=== PATIENT | female | born 1980 | race Caucasian/White ===

== ENCOUNTER → 2024-03-18 11:23 | Outpatient (REF) | payer OTHER, BC, SELFPAY ==
[2024-03-18 20:39] LABS: Rubella Positive
[2024-03-18 20:51] LABS: Hepatitis B Surface Antibody Positive
[2024-03-20 10:55] LABS: Quantiferon Mitogen minus NIL 9.97 IU/mL; Quantiferon NIL 0.03 IU/mL; Quantiferon Plus TB1 minus NIL 0.02 IU/mL (<=0.34); Quantiferon Plus TB2 minus NIL 0.04 IU/mL (<=0.34); Quantiferon TB Gold Plus Negative (Negative)
[2024-03-20 15:07] LABS: Mumps Virus IgG Positive; Varicella Zoster IgG (VZV) Positive
[2024-03-21 09:47] LABS: Rubeola (Measles) IgG Positive
== END ==
LOC: REG 11:23
PROVIDERS: ATTENDING PHYSICIAN Nurse Practitioner Family
DX: Z23 Encounter for immunization (principal)
CPT/HCPCS: 36415; 86480; 86706; 86735; 86762; 86765; 86787

== ENCOUNTER → 2024-09-09 13:01 | Outpatient (REF) | payer BC, SELFPAY | LOC: HWWDC 13:01 | PROVIDERS: ATTENDING PHYSICIAN Family Medicine | DX: Z12.31 Encounter for screening mammogram for malignant neoplasm of breast (principal) | CPT/HCPCS: 77063; 77067 ==